=== PATIENT | male | born 1945 | race Caucasian/White ===

== ENCOUNTER 2020-07-13 13:09 | Emergency (ER) | payer MEDICARE ==
[~2020-07-13] VITALS: Ht 188 cm; Wt 77.1 kg
[2020-07-13 14:01] LABS: BASOPHILS ABSOLUTE AUTO 0.03 K/mm3 (0.00-0.23); BASOPHILS PERCENT AUTO 0 % (0-2); EOSINOPHILS ABSOLUTE AUTO 0.05 K/mm3 (0.00-0.68); EOSINOPHILS PERCENT AUTO 1 % (0-6); IMMATURE GRAN ABSOLUTE AUTO 0.04 K/mm3 (0.00-0.10); IMMATURE GRAN PERCENT AUTO 0 % (0-1); LYMPHOCYTES ABSOLUTE AUTO 0.74 K/mm3 (0.84-5.20); LYMPHOCYTES PERCENT AUTO 7 % (21-46); MONOCYTES ABSOLUTE AUTO 0.46 K/mm3 (0.16-1.47); MONOCYTES PERCENT AUTO 5 % (4-13); Mean Corpuscular HGB 30.9 pg (26.0-34.0); Mean Corpuscular HGB Conc 34.1 g/dL (31.5-36.5); Mean Corpuscular Volume 91 fL (80-100); Mean Platelet Volume 10.4 fL (9.1-12.4); NEUTROPHILS ABSOLUTE AUTO 8.67 K/mm3 (1.96-9.15); NEUTROPHILS PERCENT AUTO 87 % (41-73); Platelet Count 154 K/mm3 (150-400); RDW Coefficient Variation 13.8 % (11.7-14.2); RDW Standard Deviation 46.8 fL (35.1-46.3); Red Blood Cell Count 4.85 M/mm3 (4.30-5.90); White Blood Cell Count 9.99 K/mm3 (4.00-11.30)
[2020-07-13 14:15] LABS: International Normalized Ratio 1.06; Prothrombin Time Results 11.4 Sec (9.7-11.5)
[2020-07-13 14:19] LABS: Alanine Aminotransfer (ALT/SGP 31 U/L (12-78); Albumin, Blood 4.2 g/dL (3.4-5.0); Albumin/Globulin Ratio 1.5 (0.8-1.8); Alk Phos 72 U/L (50-136); Anion Gap 5 mmol/L (6-16); Aspartate Aminotrans (AST/SGOT 28 U/L (12-37); Bilirubin, Total 1.8 mg/dL (0.1-1.0); Blood Urea Nitrogen 23 mg/dL (8-24); Bun/Creatinine Ratio 29.6 (12.0-20.0); CO2, Blood 29 mmol/L (21-32); Chloride, Blood 106 mmol/L (98-108); Creatinine, Blood 0.78 mg/dL (0.60-1.20); Ethanol (Alcohol), Blood, Med <3 mg/dL; Globulin, Blood 2.8 g/dL (2.2-4.0); Glomerular Filtration Rate >60 (60-); Glucose, Blood 140 mg/dL (70-99); Potassium, Blood 3.2 mmol/L (3.5-5.5); Sodium, Blood 140 mmol/L (136-145)
[2020-07-13] MEDS ORDERED: FLOMAX0.4 MG PO (14:22)
[2020-07-13 14:33] LABS: Source, Urine Catheter
[2020-07-13 14:48] LABS: Bilirubin, Urine Neg (Neg); Blood, Urine Neg (Neg); Glucose Qualitative, Urine Neg (Neg); Ketones, Urine Neg (Neg); Leukocyte Esterase, Urine Neg (Neg); Nitrite, Urine Neg (Neg); Protein, Urine Neg (Neg); Specific Gravity, Urine 1.005 (1.003-1.022); Urobilinogen, Urine NORM (Normal)
[2020-07-13 15:09] LABS: Appearance, Urine Clear (Clear); Color, Urine Pale Yellow (P-Yellow)
[2020-07-13] MEDS ORDERED: Percocet 5-3251 EACH PO (15:23)
== END 2020-07-13 15:45 | disposition home or self-care (01) ==
LOC: ER 13:09
PROVIDERS: Physician Assistant
DX: M54.5 Low back pain (principal); R55 Syncope and collapse; Y93.89 Activity, other specified
CPT/HCPCS: 36415; 70450; 71260; 72125; 74177; 80053; 81000; 81003; 83690; 85025; 85610; 86850; 86900; 86901; 96374-59; 99284-25; A9270; G0480; J1885; J7030; Q9967

== ENCOUNTER 2023-09-03 04:26 | Emergency (ER) | payer MEDICARE ==
[~2023-09-03] VITALS: Ht 188 cm; Wt 77.1 kg
[~2023-09-03 04:26] MED LIST: FLOMAX0.4 MG PO; Percocet 5-3251 EACH PO
[2023-09-03 05:30] VITALS: BP 104/67
== END 2023-09-03 05:35 | disposition home or self-care (01) ==
LOC: ER 04:26
DX: U07.1 COVID-19 (principal); Z85.46 Personal history of malignant neoplasm of prostate
CPT/HCPCS: 71046; 99285-25